=== PATIENT | female | born 1960 | race Caucasian/White ===

== ENCOUNTER → 2017-10-28 | Outpatient (CLI) | payer BC ==
[~2017-10-28] MED LIST: LRTUNK; MTRUNK; VIVELLE DOT TD
--- NOTE | 2017-10-29 14:38 | MAMMOGRAPHY REPORT ---
BILATERAL DIGITAL SCREENING MAMMOGRAM TOMOSYNTHESIS WITH CAD: 10/28/2017 CLINICAL HISTORY: Routine screening. Patient has no complaints. TECHNIQUE: Breast tomosynthesis in addition to standard 2D mammography was performed. Current study was also evaluated with a Computer Aided Detection (CAD) system. COMPARISON: Comparison is made to exams dated: 07/10/2016 mammogram, 07/03/2015 ultrasound, 07/03/2015 mammogram, 06/12/2015 mammogram, 04/12/2014 mammogram, and 04/07/2013 mammogram - [facility]. BREAST COMPOSITION: There are scattered areas of fibroglandular density in both breasts. FINDINGS: No suspicious masses, calcifications, or areas of architectural distortion are noted in ei ther breast. There has been no significant interval change compared to prior exams. There are stable postsurgical changes from bilateral reduction mammoplasty. Bilateral asymmetries and scattered bila teral benign appearing calcifications are not significantly changed. IMPRESSION: ACR BI-RADS CATEGORY 2: BENIGN There is no mammographic evidence of malignancy. A 1 year screening mammogram is recommended. The pa tient will receive written notification of the results. Approximately 10% of breast cancers are not detected with mammography. A negative mammographic report should not delay biopsy if a clinically suggestive mass is present. Moon Rucker M.D. /:10/28/2017 16:51:59 Pet Counselor: Heaven GERBER(Sury)(Joelle), [facility] letter sent: Normal 1/2 BI-RADS Code: ACR BI-RADS Category 2: Benign
== END | disposition home or self-care (01) ==
LOC: C.MAMM 16:36
PROVIDERS: ATTEND Physician Assistant
DX: Z12.31 Encounter for screening mammogram for malignant neoplasm of breast (principal)

== ENCOUNTER → 2017-12-14 | Outpatient (CLI) | payer BC | END | disposition home or self-care (01) | LOC: C.PATHSPEC 12:46 | PROVIDERS: ATTEND Dentist Endodontics | DX: K04.8 Radicular cyst (principal); M79.9 Soft tissue disorder, unspecified ==

== ENCOUNTER 2018-05-28 14:05 | Emergency (ER) | payer BC ==
[~2018-05-28] VITALS: Ht 170.2 cm; Wt 73.9 kg
[2018-05-28 14:08] VITALS: TEMP 36.6; Ht 170.2 cm; Wt 73.9 kg
[2018-05-28] MEDS ORDERED: BIOT1CAP3 PO (16:10)
[2018-05-28] MEDS ORDERED: ASPI81TA28 PO (16:10)
[2018-05-28] MEDS ORDERED: PRLSR20 PO (16:10)
[2018-05-28] MEDS ORDERED: MILK140C PO (16:10)
[2018-05-28] MEDS ORDERED: CYAN50005 PO (16:10)
[2018-05-28] MEDS ORDERED: PLANTAB3 PO (16:12)
[2018-05-28 16:17] VITALS: O2SAT 94
[2018-05-28 16:42] LABS: BASO % 0.1 %; BASO ABS # 0.01 K/uL (0-0.2); EOS % 0.2 %; EOS ABS # 0.02 K/uL (0-0.5); HEMATOCRIT 41.1 % (37-47); HEMOGLOBIN 13.9 g/dL (12.0-16.0); IG# 0.02 K/uL (0.00-0.02); LYMPH ABS # 1.55 K/uL (1.2-3.4); MEAN CELL VOLUME 91.9 fL (80-100); MEAN CORPUSCULAR HEMOGLOBIN 31.1 pg (25-34); MEAN CORPUSCULAR HGB CONC 33.8 g/dl (32-36); MEAN PLATELET VOLUME 11.6 fL (7.4-10.4); MONO % 10.8 %; MONO ABS # 1.05 K/uL (0.11-0.59); NEUT % 72.7 %; NEUT ABS # 7.04 K/uL (1.4-6.5); PLATELET COUNT 276 K/uL (130-400); RED CELL DISTRIBUTION WIDTH CV 12.9 % (11.5-14.5); RED CELL DISTRIBUTION WIDTH SD 43.5 fL (36.4-46.3); WHITE BLOOD COUNT 9.69 K/uL (4.8-10.8)
[2018-05-28 16:54] LABS: PTT PATIENT 28.3 SECONDS (21.0-31.0)
[2018-05-28 17:08] LABS: ALBUMIN 3.7 gm/dl (3.4-5.0); ALKALINE PHOSPHATASE 78 U/L (45-117); ALT/SGPT 46 U/L (12-78); AST/SGOT 21 U/L (15-37); BLOOD UREA NITROGEN 12 mg/dl (7-18); CALCIUM 8.5 mg/dl (8.5-10.1); CARBON DIOXIDE 25 mmol/L (21-32); CKMB < 1.0 ng/ml (0.5-3.6); CREATININE 0.78 mg/dl (0.60-1.20); GLUCOSE 92 mg/dl (70-99); LIPASE 64 U/L (73-393); POTASSIUM 3.9 mmol/L (3.5-5.1); SODIUM 133 mmol/L (136-145); TOTAL PROTEIN 7.8 gm/dl (6.4-8.2)
--- NOTE | 2018-05-28 17:57 | DIAGNOSTIC IMAGING REPORT ---
ULTRASOUND RIGHT UPPER QUADRANT ABDOMEN CLINICAL HISTORY: Right upper quadrant abdominal pain. COMPARISON STUDY: No priors. TECHNIQUE: Real-time, grayscale, and color flow sonography of the right upper quadrant of the abdomen was performed. Images are reviewed in the transverse and longitudinal planes. FINDINGS: Liver: The liver is normal in size and echotexture. There is no intrahepatic biliary ductal dilatation. The main portal vein is patent. There is a 7.6 x 5.6 x 5.7 cm well-circumscribed echogenic lesion in the right hepatic lobe. An additional 1.2 cm echogenic lesion is identified in the right lobe. Gallbladder: The gallbladder is surgically absent. The common bile duct measures up to 0.3 cm in diameter. Pancreas: Visualized portions of the pancreatic head and body are normal in appearance. The splenic vein is patent. Right kidney: Survey images of the right kidney demonstrate normal size and echotexture. There is no hydronephrosis. A 6 mm echogenic lesion is seen in the cortex of the right upper pole a 5 mm echogenic lesion is seen in the interpolar region. Ascites: None. Pleural spaces: There is a trace right pleural effusion identified. IMPRESSION: 1. No acute sonographic abnormality is identified in the right upper quadrant noting status post cholecystectomy. 2. There is a 7.6 cm well-circumscribed echogenic mass lesion identified in the right hepatic lobe. A second similar-appearing 1.2 cm lesion is also present . These are pathologically indeterminant, and likely represent hemangiomas. Correlation with any prior outside imaging studies is recommended for comparison purposes and to assess for stability. If no prior studies have been performed, then follow-up with a nonemergent liver protocol CT or MRI is recommended for definitive characterization. 3. Two subcentimeter echogenic lesions are noted in the right renal cortex, likely representing tiny angiomyolipomas. Again, comparison with any prior outside imaging studies is recommended. 4. Trace right pleural effusion. Electronically signed by: Julian Parkinson M.D. 05/28/2018 5:56 PM Dictated Date/Time: 05/28/2018 5:52 PM
--- NOTE | 2018-05-28 17:58 | DIAGNOSTIC IMAGING REPORT ---
PA CHEST WITH ABDOMINAL SERIES CLINICAL HISTORY: Right upper quadrant abdominal pain. Dyspnea. FINDINGS: A PA chest radiograph is obtained. No prior studies are available for comparison at the time of dictation. The cardiomediastinal silhouette is unremarkable. There are trace pleural effusions with bibasilar atelectasis. No pneumothorax is seen. The skeletal structures are osteopenic. The bony thorax is grossly intact. Supine and erect abdominal radiographs are correlated with abdominal ultrasound performed the same day 05/28/2018. Cholecystectomy clips are seen in the right upper quadrant. There is a nonobstructed abdominal bowel gas pattern. Moderate colonic fecal retention is observed. No evidence of intraperitoneal free air is seen. There are no abnormal abdominal calcifications. A phlebolith is noted in the pelvis. The lumbosacral spine and bony pelvis appear intact. IMPRESSION: 1. Trace pleural effusions and bibasilar atelectasis. 2. Nonobstructed abdominal bowel gas pattern. 3. Moderate constipation. Electronically signed by: Julian Parkinson M.D. 05/28/2018 5:57 PM Dictated Date/Time: 05/28/2018 5:56 PM
[2018-05-28] MEDS ORDERED: TRAM-10 PO (19:34)
[2018-05-28 19:40] VITALS: BP 122/68; PULSE 70; O2SAT 98
[2018-05-28] MEDS ORDERED: MAGNESIUM CITRATE 296 ML/BTL PO ONE (19:45)
[2018-05-28] MEDS ORDERED: FLUT0.15 NAE (22:49)
[2018-05-28] MEDS ORDERED: ESTR0.07 TD (22:49)
[2018-05-28] MEDS ORDERED: LISI-729 PO (22:49)
[2018-05-28] MEDS ORDERED: LEVO25TA PO (22:49)
--- NOTE | 2018-05-29 00:11 | EMERGENCY ROOM VISIT NOTE ---
History First contact with patient: 15:23 Chief Complaint: CHEST PAIN Stated Complaint: PAIN IN CHEST,SHOULDER WHEN BREATHING, Nursing Triage Summary: pt reports she feels like she has air trapped in her abd, "You know like after you had a surgery". pain in chest, abd radiating into back. Started Wed night, worse at night. Pt taking GasX with no relief. denies n/v/d/. "I can't take deep breaths". History of Present Illness The patient is a 57 year old female who presents to the Emergency Room with complaints of right upper quadrant pain that radiates into the right chest and shoulder region. Patient reports that her pain is worsened with deep breathing. She also reports feeling somewhat short of breath with weakness. The patient reports that her pain started Thursday evening. She thought it was due to a kale salad with broccoli. She thought it was because of gas pain, and took Gas-X and Tylenol. This helped to resolve the pain. The following morning, she felt perfectly fine. That same evening, she ate another kale salad with cauliflower, and noticed similar pain. She reports taking Gas-X and Tylenol again, but did not have quite the same pain relief. She reports that the pain is worse when laying down. She is status post cholecystectomy. She reports that she is also on cholesterol medicine, previously treated with pravastatin and Zetia that increased her LFTs. She stopped these medications, and reports that her last liver function test roughly 3 weeks ago still showed elevated liver transaminases. She also reports a history of GERD, and is currently taking omeprazole. She was told to stop the Zantac as well. The patient reports that she gets regular colonoscopies, starting colonoscopies at the age of 34 because of a family history of polyps. Her colonoscopies have been normal. She denies being told that she has diverticulosis. The patient reports that she does occasionally have problems with constipation, but reports that this pain is different. She denies any urinary symptoms. She is status post total abdominal hysterectomy with bilateral oophorectomy. She denies any prior history of blood clots. The patient reports that she has had some crampy leg pain that she attributed to her cholesterol medications. She currently rates her discomfort a 5 out of 10. She denies any other cardiopulmonary history. Review of Systems HEENT: Denies dizziness, visual problems, hearing loss, tinnitus. Denies difficulty swallowing or oral lesions. PULMONARY: Denies cough, sputum production or hemoptysis. Otherwise see HPI. CARDIOVASCULAR: Denies recent palpitations, dyspnea on exertion, orthopnea or peripheral edema. Otherwise see HPI. With complaint of right-sided chest pain. GASTROINTESTINAL: Denies diarrhea, constipation, nausea or vomiting, otherwise see HPI with complaint of right upper quadrant pain. GENITOURINARY: Denies dysuria, frequency, urgency or nocturia. NEUROLOGIC: Denies history of epilepsy, CVA, TIA or chronic headaches. MUSCULOSKELETAL: Denies history of joint tenderness/swelling. SKIN: Denies rashes or lesions. PSYCHIATRIC: Denies history of depression or mental illness. ENDOCRINE: Denies history of diabetes or thyroid disorders. Past Medical/Surgical History Medical Problems: (1) Esophageal Reflux (2) Hyperlipidemia, Unspecified (3) Personal History Of Nicotine Dependence Surgical Problems: (1) History of cholecystectomy (2) History of hysterectomy Family History FH: GI cancer FH: breast cancer Social History Smoking Status: Former Smoker Alcohol Use: occasionally Marital Status: in relationship Housing Status: lives with significant other Current/Historical Medications Scheduled Aspirin (Aspirin Ec), 81 MG PO DAILY Biotin (Biotin), 5,000 MCG PO DAILY Cyanocobalamin (Vitamin B-12), 5,000 MCG PO DAILY Estradiol (Vivelle-Dot), 1 PATCH TD 2XWK Levothyroxine Sodium (Synthroid), 25 MCG PO DAILY Lisinopril (Zestril), 5 MG PO DAILY Milk Thistle (Silybum Marianum (Milk Thistle), 1 DOSE PO DAILY Omeprazole (Prilosec), 20 MG PO BID Plant Sterols And Stanols (Cholest Off), 450 MG PO BID Scheduled PRN Fluticasone Propionate (Nasal) (Flonase Allergy Relief), 2 SPRAYS BENNETT DAILY PRN for Allergy Symptoms Tramadol (Ultram), 1 TAB PO Q4H PRN for Pain Physical Exam Vital Signs Date Time Temp Pulse Resp B/P (MAP) Pulse Ox O2 Delivery O2 Flow Rate FiO2 05/28/18 19:40 70 18 122/68 98 Room Air 05/28/18 18:03 70 16 112/60 96 Room Air 05/28/18 16:17 73 05/28/18 16:17 94 Room Air 05/28/18 16:17 94 Room Air 8/10/18 16:17 77 18 106/59 94 Room Air 05/28/18 14:12 99 Room Air 05/28/18 14:08 36.6 78 18 120/76 98 Room Air Physical Exam CONSTITUTIONAL: Healthy and well nourished. Alert and oriented X 3. Patient appears in mild discomfort. PSYCHIATRIC: Positive affect. HEENT: Normocephalic, atraumatic. Pupils equal, round and reactive. Ears and nares are clear. No scleral icterus or conjunctival injection/pallor. NECK: Full active range of motion without discomfort. No JVD or carotid bruits. No worsening pain with range of motion of the neck. RESPIRATORY: Clear to auscultation bilaterally with no wheezing, crackles, rhonchi or stridor. The breathing worsens her discomfort. CARDIOVASCULAR: Regular rate and rhythm with no murmurs, rubs or gallops. GASTROINTESTINAL: Bowel sounds present in all quadrants. Patient has no obvious. Right upper quadrant or epigastric tenderness to palpation. Negative Briceno sign. Negative CVA tenderness. No abdominal rigidity, guarding or rebound. MUSCULOSKELETAL: Full range of motion of all joints without discomfort. INTEGUMENTARY: No rash or other significant dermatologic conditions noted. HEMATOLOGIC: No ecchymosis or petechiae noted. NEUROLOGIC: Cranial nerves II-XII grossly intact. No focal neurologic deficits noted. Medical Decision & Procedures ER Provider Diagnostic Interpretation: My interpretation of an ECG shows a normal sinus rhythm of 74 bpm with T-wave inversions in anteroseptal leads. No other conduction abnormalities noted. My interpretation of an abdomen obstruction series with a PA chest view shows a moderate fecal burden without evidence for obstruction or free air. No basilar lung consolidations, pneumothorax or cardiomegaly noted. Radiologist report is as follows: PA CHEST WITH ABDOMINAL SERIES CLINICAL HISTORY: Right upper quadrant abdominal pain. Dyspnea. FINDINGS: A PA chest radiograph is obtained. No prior studies are available for comparison at the time of dictation. The cardiomediastinal silhouette is unremarkable. There are trace pleural effusions with bibasilar atelectasis. No pneumothorax is seen. The skeletal structures are osteopenic. The bony thorax is grossly intact. Supine and erect abdominal radiographs are correlated with abdominal ultrasound performed the same day 05/28/2018. Cholecystectomy clips are seen in the right upper quadrant. There is a nonobstructed abdominal bowel gas pattern. Moderate colonic fecal retention is observed. No evidence of intraperitoneal free air is seen. There are no abnormal abdominal calcifications. A phlebolith is noted in the pelvis. The lumbosacral spine and bony pelvis appear intact. IMPRESSION: 1. Trace pleural effusions and bibasilar atelectasis. 2. Nonobstructed abdominal bowel gas pattern. 3. Moderate constipation. Abdominal ultrasound shows a few echogenic lesions within the liver. Otherwise no other acute findings appreciated. Radiologist report is as follows: ULTRASOUND RIGHT UPPER QUADRANT ABDOMEN CLINICAL HISTORY: Right upper quadrant abdominal pain. COMPARISON STUDY: No priors. TECHNIQUE: Real-time, grayscale, and color flow sonography of the right upper quadrant of the abdomen was performed. Images are reviewed in the transverse and longitudinal planes. FINDINGS: Liver: The liver is normal in size and echotexture. There is no intrahepatic biliary ductal dilatation. The main portal vein is patent. There is a 7.6 x 5.6 x 5.7 cm well-circumscribed echogenic lesion in the right hepatic lobe. An additional 1.2 cm echogenic lesion is identified in the right lobe. Gallbladder: The gallbladder is surgically absent. The common bile duct measures up to 0.3 cm in diameter. Pancreas: Visualized portions of the pancreatic head and body are normal in appearance. The splenic vein is patent. Right kidney: Survey images of the right kidney demonstrate normal size and echotexture. There is no hydronephrosis. A 6 mm echogenic lesion is seen in the cortex of the right upper pole a 5 mm echogenic lesion is seen in the interpolar region. Ascites: None. Pleural spaces: There is a trace right pleural effusion identified. IMPRESSION: 1. No acute sonographic abnormality is identified in the right upper quadrant noting status post cholecystectomy. 2. There is a 7.6 cm well-circumscribed echogenic mass lesion identified in the right hepatic lobe. A second similar-appearing 1.2 cm lesion is also present . These are pathologically indeterminant, and likely represent hemangiomas. Correlation with any prior outside imaging studies is recommended for comparison purposes and to assess for stability. If no prior studies have been performed, then follow-up with a nonemergent liver protocol CT or MRI is recommended for definitive characterization. 3. Two subcentimeter echogenic lesions are noted in the right renal cortex, likely representing tiny angiomyolipomas. Again, comparison with any prior outside imaging studies is recommended. 4. Trace right pleural effusion. Laboratory Results 05/28/18 16:25 Red Blood Count 4.47, Mean Corpuscular Volume 91.9, Mean Corpuscular Hemoglobin 31.1, Mean Corpuscular Hemoglobin Concent 33.8, Mean Platelet Volume 11.6, Neutrophils (%) (Auto) 72.7, Lymphocytes (%) (Auto) 16.0, Monocytes (%) (Auto) 10.8, Eosinophils (%) (Auto) 0.2, Basophils (%) (Auto) 0.1, Neutrophils # (Auto ) 7.04, Lymphocytes # (Auto) 1.55, Monocytes # (Auto) 1.05, Eosinophils # (Auto ) 0.02, Basophils # (Auto) 0.01 05/28/18 16:25 Test 05/28/18 16:25 White Blood Count 9.69 K/uL (4.8-10.8) Red Blood Count 4.47 M/uL (4.2-5.4) Hemoglobin 13.9 g/dL (12.0-16.0) Hematocrit 41.1 % (37-47) Mean Corpuscular Volume 91.9 fL (80-100) Mean Corpuscular Hemoglobin 31.1 pg (25-34) Mean Corpuscular Hemoglobin Concent 33.8 g/dl (32-36) Platelet Count 276 K/uL (130-400) Mean Platelet Volume 11.6 fL (7.4-10.4) Neutrophils (%) (Auto) 72.7 % Lymphocytes (%) (Auto) 16.0 % Monocytes (%) (Auto) 10.8 % Eosinophils (%) (Auto) 0.2 % Basophils (%) (Auto) 0.1 % Neutrophils # (Auto) 7.04 K/uL (1.4-6.5) Lymphocytes # (Auto) 1.55 K/uL (1.2-3.4) Monocytes # (Auto) 1.05 K/uL (0.11-0.59) Eosinophils # (Auto) 0.02 K/uL (0-0.5) Basophils # (Auto) 0.01 K/uL (0-0.2) RDW Standard Deviation 43.5 fL (36.4-46.3) RDW Coefficient of Variation 12.9 % (11.5-14.5) Immature Granulocyte % (Auto) 0.2 % Immature Granulocyte # (Auto) 0.02 K/uL (0.00-0.02) Prothrombin Time 10.4 SECONDS (9.0-12.0) Prothromb Time International Ratio 1.0 (0.9-1.1) Activated Partial Thromboplast Time 28.3 SECONDS (21.0-31.0) Partial Thromboplastin Ratio 1.1 D-Dimer 360 ug/L FEU (0-500) Anion Gap 6.0 mmol/L (3-11) Est Creatinine Clear Calc Drug Dose 76.5 ml/min Estimated GFR () 97.1 Estimated GFR (Non- 83.8 BUN/Creatinine Ratio 15.4 (10-20) Calcium Level 8.5 mg/dl (8.5-10.1) Total Bilirubin 0.9 mg/dl (0.2-1) Direct Bilirubin 0.2 mg/dl (0-0.2) Aspartate Amino Transf (AST/SGOT) 21 U/L (15-37) Alanine Aminotransferase (ALT/SGPT) 46 U/L (12-78) Alkaline Phosphatase 78 U/L (45-117) Total Creatine Kinase 51 U/L (26-192) Creatine Kinase MB < 1.0 ng/ml (0.5-3.6) Creatine Kinase MB Ratio (0-3.0) Troponin I < 0.015 ng/ml (0-0.045) Total Protein 7.8 gm/dl (6.4-8.2) Albumin 3.7 gm/dl (3.4-5.0) Lipase 64 U/L (73-393) The above labs were reviewed. CBC, partial renal profile, LFTs and lipase are normal. Troponin and d-dimer are normal. Sodium is mildly decreased at 133. Medications Administered Medications (Trade) Dose Ordered Sig/Shae Route Start Time Stop Time Status Last Admin Dose Admin Magnesium Citrate (Citrate Of Magnesia Soln) 296 ml NOW ONCE PO 05/28/18 19:45 05/28/18 19:46 DC 05/28/18 19:53 296 ML ED Course Patient history and physical exam were performed. Nurse's notes were reviewed. Vital signs were reviewed and were normal with an O2 saturation of 98 not tachycardic. IV access was established, and labs were drawn. The patient was hydrated with a liter normal saline. An ECG shows inverted T waves in anteroseptal leads. An abdomen obstruction series with a PA chest view shows moderate constipation without any other acute findings. Abdominal ultrasound shows liver lesions that appear cystic. Review of labs shows normal liver transaminases. CBC, partial renal profile, lipase, troponin and d-dimer were both normal. The patient is mildly hyponatremic. The patient denies any worsening condition while in the The case was further discussed with Dr. Terrell, ED attending physician, who agrees with workup and outpatient plan of care. I did encourage the patient to follow-up with [facility] gastroenterology for further management. In case her discomfort is being caused by her constipation, I recommended MiraLAX and magnesium citrate. A bottle of magnesium citrate was sent home with the patient. She was encouraged alternate ibuprofen and Tylenol as needed for pain. She was provided a prescription for Ultram as needed for breakthrough pain. She was instructed to return to the emergency department for any progressively worsening pain, developing fever, vomiting or other concerning symptoms. The patient was happy with plan of care, and voiced understanding of all discharge instructions. Medical Decision Patient presents to the emergency department with complaint of right upper quadrant pain radiating into the right chest and neck region. The patient is status post cholecystectomy. She does have a few liver lesions that appear cystic in nature. No common bile duct dilatation is noted. She has no lab work suggestive of acute hepatitis or pancreatitis. She was unable to provide a urine sample while in the emergency department. The patient does have moderate constipation on x-ray without evidence for obstruction. Chest x-ray also does not show any evidence pneumothorax, consolidations or cardiomegaly. I do not suspect acute KS or pulmonary embolus with normal troponin and d-dimer labs today. I also do not suspect acute musculoskeletal etiology. The patient reports that her symptoms are not consistent with reflux. [place] Drug Monitoring Program Search Results: patient reviewed within database, no issues identified Medication Reconcilliation Current Medication List: was personally reviewed by me Blood Pressure Screening Patient's blood pressure: Normal blood pressure Impression Primary Impression: Right upper quadrant pain Additional Impressions: Right shoulder pain Constipation Departure Information Prescriptions Tramadol (Ultram) 50 Mg Tab 1 TAB PO Q4H Y for Pain, #15 TAB For Initial Treatment Prov: Adrián Armenta PA 05/28/18 Referrals Lesly Stanley PA-C (PCP) Patient Instructions My [facility] Problem Qualifiers Additional Impressions: Right shoulder pain Chronicity: acute Qualified Codes: M25.511 - Pain in right shoulder Constipation Constipation type: unspecified constipation type Qualified Codes: K59.00 - Constipation, unspecified
== END 2018-05-28 19:54 | disposition home or self-care (01) ==
LOC: C.EDB 14:07 → C.EDC 19:54
DX: R10.11 Right upper quadrant pain (principal); M25.511 Pain in right shoulder; K59.00 Constipation, unspecified; K21.9 Gastro-esophageal reflux disease without esophagitis; E78.5 Hyperlipidemia, unspecified; Z87.891 Personal history of nicotine dependence; Z79.82 Long term (current) use of aspirin